=== PATIENT | female | born 1935 | race Caucasian/White ===

== ENCOUNTER 2020-02-08 13:35 | Emergency (ER) | payer MEDICARE, OTHER ==
[~2020-02-08] VITALS: Ht 154.9 cm; Wt 63.5 kg
[~2020-02-08 13:35] MED LIST: ATOR10TA PO; CARB1TAB21 PO; CHOL100062 PO; DONE10TA44 PO; ESCI20TA PO; FLUT16SP EA NOSTRIL; GABA-534 PO; MELO-105 PO; OMEP40CA13 PO; TOLT4CAP PO
--- NOTE | 2020-02-08 13:45 | NUR ---
Dr. Wilkins at bedside for MSE
--- NOTE | 2020-02-08 13:52 | NUR ---
Patient discharged to home in stable condition. Written and verbal after care instructions given. Patient verbalizes understanding of instructions. Stressed follow up or return to ER for worsening s/s. Patient ambulated with steady gait. NAD noted
[2020-02-08 13:55] VITALS: BP 137/66
== END 2020-02-08 13:52 | disposition home or self-care (01) ==
LOC: ER 13:44
DX: T16.1XXA Foreign body in right ear, initial encounter (principal); X58.XXXA Exposure to other specified factors, initial encounter; Y93.E8 Activity, other personal hygiene; Y92.89 Other specified places as the place of occurrence of the external cause; H60.91 Unspecified otitis externa, right ear
CPT/HCPCS: A4663